=== PATIENT | male | born 2000 | race Caucasian/White ===

== ENCOUNTER 2024-10-28 16:53 | Emergency (ER) | payer OTHER, SELFPAY ==
[2024-10-28] VITALS (8 sets, daily range): BP systolic 125–136; BP diastolic 70–75; PULSE 72–89; RESP 18; TEMP 36.9–37; O2SAT 95–98; BMI 31.2
[2024-10-28 18:14] LABS: Add Manual Diff / Slide Review NO; Basophils Absolute Auto 100 /uL (0-100); Basophils Percent Auto 0.6 % (0-2); Eosinophils Absolute Auto 0 /uL (0-450); Eosinophils Percent Auto 0.4 % (2-4); Hematocrit 44.6 % (41-53); Hemoglobin 15.4 g/dL (13.5-17.5); Lymphocytes Absolute Auto 2200 /uL (1100-4500); Lymphocytes Percent Auto 24.3 % (25-40); Mean Corpuscular HGB Conc 34.5 % (30-36); Mean Corpuscular Hemoglobin 29.1 PG (26-34); Mean Corpuscular Volume 84.3 fL (80-100); Monocytes Absolute Auto 400 /uL (0-900); Monocytes Percent Auto 4.4 % (3-14); Neutrophils Absolute Auto 6500 /uL (1500-7000); Neutrophils Percent Auto 70.3 % (50-75); Platelet Count 347 X10^3/uL (150-400); Red Blood Cell Count 5.29 X10^6/uL (4.5-5.9); Red Cell Distribution Width 13.4 % (11.6-14.8); White Blood Cell Count 9.2 X10^3/uL (4.5-11.0)
[2024-10-28 18:25] LABS: INR 1.1 (0.9-1.3); Prothrombin Time 12.7 SECONDS (9.4-12.5)
[2024-10-28 18:27] LABS: PTT Partial Thromboplastin Tim 35 SECONDS (25.1-36.5)
[2024-10-28 18:28] LABS: Alanine Aminotransferase 59 IU/L (<50); Albumin Globulin Ratio 1.2 (1.0-2.8); Alkaline Phosphatase 53 U/L (38-126); Aspartate Aminotransferase 41 IU/L (17-59); BUN Creatinine Ratio 15.7 (6-22); Bilirubin Total 0.6 mg/dL (0.2-1.3); Blood Urea Nitrogen 19 mg/dL (9-20); Calcium 9.6 mg/dL (8.4-10.2); Carbon Dioxide 26 mmol/L (22-32); Chloride 104 mmol/L (98-107); Estimated Glomerular Filt Rate > 60 mL/min (>60); Globulin 4.1 g/dL (1.7-4.1); Glucose 109 mg/dL (70-100); HEMOLYSIS < 15 (0-50); Potassium 3.8 mmol/L (3.4-5.1); Sodium 140 mmol/L (137-145); Total Protein 9.1 g/dL (6.3-8.2)
--- NOTE | 2024-10-28 20:40 | ED.GIBLEED ---
HPI - GI Bleed General Chief complaint: GI Bleed Stated complaint: blood in stool Time Seen by Provider: 10/28/24 20:39 Source: patient, RN notes reviewed and old records reviewed Mode of arrival: Ambulatory Limitations: no limitations History of Present Illness HPI Narrative: 24-year-old male with no reported medical issues report of bright red blood but sometimes darker with each bowel movement. Patient states he has had several days of blood in his stool he has a bowel movement sometimes it is more blood than stool. He has a large bowl formed stool today which he states had blood mixed in. He states no fevers or chills. He has had some nausea but no vomiting. He reports some lower abdominal pain left greater than right. Patient states he has not had any rectal pain. Has not had pain with bowel movement. He denies any dysuria urgency or frequency. He denies any other bleeding. Patient states he has had this a few times in the past but not persistently like this. He states the pain is also different. Patient states no family of ulcerative colitis or Crohn's. Reported allergy to latex. No daily medications. States he had a prior fracture repair but no other surgeries. No regular tobacco, no regular alcohol or recreational drugs. Related Data Allergies Allergy/AdvReac Type Severity Reaction Status Date / Time latex Allergy Rash Verified 10/28/24 16:56 Review of Systems Review of Systems ROS Unobtainable: All systems reviewed & are unremarkable except as noted in HPI and below Patient History Social History Smoking Status: Never smoker Smoking Status: Never smoker Exam Narrative Exam Narrative: GENERAL: Alert and oriented x three, male in mild distress HEENT: Head normocephalic, atraumatic, EOMI, pupils reactive, face symmetric, moist mucous membranes NECK: Supple, full range of motion CARDIOVASCULAR: Regular rate and rhythm without murmurs, rubs or gallops. RESPIRATORY: Breath sounds equal bilaterally, no wheezes rales or rhonchi. ABDOMEN: Soft, mild left lower quadrant tenderness. Normoactive bowel sounds all 4 quadrants. No guarding or rebound, rigidity, no mass, digital rectal exam nontender no obvious hemorrhoids appreciated. Instrument Adjuster RN Penny : No CVA tenderness EXTREMITIES: Normal range of motion, no clubbing or edema. Neurovascularly intact NEUROLOGICAL: Cranial nerves II through XII grossly intact. Moving all extremities SKIN: Warm, dry, no petechiae, no rashes or lesions. Initial Vital Signs Initial Vital Signs: Vital Signs Temperature 98.6 F 10/28/24 16:56 Pulse Rate 89 10/28/24 16:56 Respiratory Rate 18 10/28/24 16:56 Blood Pressure 125/72 10/28/24 16:56 Pulse Oximetry 96 10/28/24 16:56 Oxygen Delivery Method Room Air 10/28/24 16:56 Course Orders Ordered: ED Orders 10/28/24 21:01 CT abdomen pelvis w con Stat Discontinued Medications Ondansetron HCl (Ondansetron 4 Mg/2 Ml Inj) 4 mg IV NOW PRN PRN Reason: Nausea And Vomiting Ondansetron HCl (Ondansetron 4 Mg Odt) 4 mg SL NOW PRN PRN Reason: Nausea And Vomiting Vital Signs Vital signs: Vital Signs - 8 hr 10/28/24 20:00 10/28/24 20:00 10/28/24 20:30 Temperature Pulse Rate 75 Blood Pressure 125/73 129/70 Pulse Oximetry 95 10/28/24 20:30 10/28/24 21:02 10/28/24 21:30 Temperature Pulse Rate 72 85 78 Blood Pressure Pulse Oximetry 97 98 97 10/28/24 21:41 10/28/24 21:41 Temperature 98.4 F Pulse Rate 88 Blood Pressure 126/72 Pulse Oximetry 97 MDM - GI Bleed Lab Data 10/28/24 18:05 10/28/24 18:05 Labs: Lab Results 10/28/24 Range/Units 18:05 WBC 9.2 (4.5-11.0) X10^3/uL RBC 5.29 (4.5-5.9) X10^6/uL Hgb 15.4 (13.5-17.5) g/dL Hct 44.6 (41-53) % MCV 84.3 (80-100) fL MCH 29.1 (26-34) PG MCHC 34.5 (30-36) % RDW 13.4 (11.6-14.8) % Plt Count 347 (150-400) X10^3/uL Neut % (Auto) 70.3 (50-75) % Lymph % (Auto) 24.3 L (25-40) % [place] % (Auto) 4.4 (3-14) % Eos % (Auto) 0.4 L (2-4) % Baso % (Auto) 0.6 (0-2) % Neut # (Auto) 6500 (4684-7678) /uL Lymph # (Auto) 2200 (3847-9425) /uL [place] # (Auto) 400 (0-900) /uL Eos # (Auto) 0 (0-450) /uL Baso # (Auto) 100 (0-100) /uL PT 12.7 H (9.4-12.5) SECONDS INR 1.1 (0.9-1.3) APTT 35 (25.1-36.5) SECONDS Sodium 140 (137-145) mmol/L Potassium 3.8 (3.4-5.1) mmol/L Chloride 104 (98-107) mmol/L Carbon Dioxide 26 (22-32) mmol/L BUN 19 (9-20) mg/dL Creatinine 1.21 (0.66-1.25) mg/dL Estimated GFR > 60 (>60) mL/min BUN/Creatinine Ratio 15.7 (6-22) Glucose 109 H (70-100) mg/dL Calcium 9.6 (8.4-10.2) mg/dL Total Bilirubin 0.6 (0.2-1.3) mg/dL AST 41 (17-59) IU/L ALT 59 H (<50) IU/L Alkaline Phosphatase 53 (38-126) U/L Total Protein 9.1 H (6.3-8.2) g/dL Albumin 5.0 (3.5-5.0) g/dL Globulin 4.1 (1.7-4.1) g/dL Albumin/Globulin Ratio 1.2 (1.0-2.8) Blood Type A Positive Antibody Screen Negative MDM Narrative Medical decision making narrative: Show white count of 9.2 hemoglobin of 15 platelets of 347. INR is 1.1 electrolytes are appropriate BUN normal at 19 glucose is 109 ALT is 59 but normal AST of [address] abdomen pelvis mild hepatic steatosis otherwise normal CT abdomen pelvis. 24-year-old male reports blood in his stool patient was also had some left lower quadrant and a little bit of right lower quadrant pain in his mildly tender in the left. We will obtain CT abdomen pelvis to evaluate for any colitis or other changes. Patient has been hemodynamically stable. Patient was negative CT abdomen pelvis we will have him follow up for scope with General surgery or Gastroenterology. Did review that he had some hepatic steatosis. Discussed return precautions. Discharge Plan Departure Patient Disposition: Home Clinical Impression: Rectal bleeding Instructions: DI for Rectal Bleeding Activity Restrictions/Additional Instructions: Follow up with General surgery or GI for colonoscopy for your rectal bleeding. Please call to set up follow up with the contact included below. Himself regular stools you can take a stool softener such as Colace once or twice daily if you are constipated. Please return if you develop fevers, rapidly worsening pain, lightheadedness or passing out, increasing bleeding or other new or concerning changes. Referrals: Marck Shoemaker MD [Physician] - Stand Alone Forms: Patient Portal/API/Survey
--- NOTE | 2024-10-28 21:01 | DI.CT.S_ITS ---
PROCEDURE: CT ABDOMEN PELVIS W CON INDICATIONS: rectal bleeding, LLQ>RLQ pain TECHNIQUE: After the administration of intravenous contrast, axial sections acquired from the lung bases to the pubic symphysis. Coronal and sagittal reformats were performed. For radiation dose reduction, the following was used: automated exposure control, adjustment of mA and/or kV according to patient size. COMPARISON: None. FINDINGS: Image quality: Diagnostic. Lower Chest: No significant findings. ABDOMEN: Liver: Mild hepatic steatosis. No solid mass. Gallbladder: Partially decompressed. No visible calcification or wall thickening. Biliary ducts: No biliary dilation. Pancreas: Normal size and morphology without visible ductal dilatation or inflammation. Spleen: Size is within normal limits. Adrenal Glands: No adrenal nodules. Kidneys and Ureters: No hydronephrosis. No solid mass. No complex renal cystic lesion which requires follow up. Stomach and Bowel: Stomach and small bowel loops are normal caliber. Normal appendix. Normal quantity of colonic stool. No suspicious colon wall thickening or inflammation. No explanation for rectal bleeding seen. Peritoneum: No abnormal intraperitoneal fluid. No free air. Ventral Wall: Tiny fat containing umbilical hernia. Abdominal Nodes: No retroperitoneal or mesenteric adenopathy by size criteria. Vessels: The abdominal aorta, IVC, and portal vein are of normal caliber. PELVIS: Pelvic Organs: Unremarkable. Bladder: No stones or wall thickening. Pelvic Nodes: No enlarged lymph nodes. Miscellaneous: No inguinal hernias are seen. Bones: No aggressive osseous abnormality. IMPRESSION: Mild hepatic steatosis. Otherwise normal CT abdomen pelvis. Dictated by: Maegan Ley M.D. on 10/28/2024 at 21:40 Approved by: Maegan Ley M.D. on 10/28/2024 at 21:42
== END 2024-10-28 22:14 | disposition home or self-care (01) ==
PROVIDERS: Emergency Medicine; Emergency Provider Emergency Medicine
DX: K62.5 Hemorrhage of anus and rectum (principal); R10.32 Left lower quadrant pain
CPT/HCPCS: 74177; 80053; 85025; 85610; 85730; 86850; 86900; 86901; 99281; 99284; Q9967

== ENCOUNTER 2024-11-09 06:27 | Day surgery (SDC) | payer OTHER, SELFPAY ==
[2024-11-09] VITALS (7 sets, daily range): BP systolic 99–132; BP diastolic 56–76; PULSE 70–91; RESP 15–70; TEMP 36.4–36.6; O2SAT 94–96
--- NOTE | 2024-11-09 | PATH_ITS ---
[facility] Accession Number: [id number] No. of containers..01 Tissue . 01 Material submitted: . ileum - TERMINAL ILEUM . 01 Diagnosis: TERMINAL ILEUM : Ileal mucosa with no diagnostic alterations. No active inflammation, granulomas, or dysplasia identified. STO 11/11/2024 1602 Local . 01 Electronically signed: . Gage Morales MD, Pathologist NPI- [id number] . 01 Gross description: . TERMINAL ILEUM : Received in formalin are 2 fragment(s) of zurita, soft tissue measuring 0.2 x 0.2 x 0.2 cm to 0.4 x 0.4 x 0.2 cm submitted entirely in 1 cassette(s) /PAULO 11/11/20242 Local . 01 Pathologist provided ICD-10: R19.5 . 01 CPT . 669688 Specimen Comment: A courtesy copy of this report has been sent to [facility] Performed at: [address] [address], [place], [place] [id number] MD Gage Morales MD Phone: [phone]
[2024-11-09] MEDS: LACTATED RINGERS 1,000 ML 42 ML IV (07:22)
--- NOTE | 2024-11-09 07:39 | PM.PREOP ---
Pre-operative Note Interval Note History & Physical reviewed/Exam performed by Physician: Yes Changes to H&P: No
--- NOTE | 2024-11-09 08:03 | PM.OP.COLON ---
Operative Date/Time/Diagnoses Date of procedure: 11/09/24 Time of procedure: 08:03 Pre-op diagnosis: 1. Blood and mucus per rectum 2. Prolapsed internal Post-op diagnosis: same Procedure & Clinicians Study performed: 1. Colonoscopy with biopsy terminal ileum 2. Anoscopy with rubber-band ligation of internal hemorrhoid left anterior quadrant Same procedure as scheduled: Yes Indications: Blood mucus and stool, prolapsed internal hemorrhoids Surgeon: Wesley Boyd Procedure Notes SCOAP/Timeout: Performed Procedure in detail: Time-out was performed. Mac was induced. Patient was placed in left lateral decubitus position. The perineum was inspected without any gross abnormality. Lubricated pediatric colonoscope was inserted and advanced to the cecum. The terminal ileum was intubated. The ileal mucosa was friable, biopsies were obtained. The colonoscope was withdrawn slowly inspecting the circumference of the colon. Very small polyps may have been missed, prep quality was adequate. Retroflexed view of the rectum showed 1 medium size prolapsed nonbleeding internal hemorrhoids. Colonoscope was removed and anoscope was inserted. Suction band ligated after was applied to the left anterior quadrant hemorrhoid and 2 bands were applied. The scope was withdrawn the patient was taken to PACU in good condition. Scope withdrawal time: 9 Findings: internal hemorrhoids Specimen(s): other (Terminal ileum bx) Complications: none Impression: Internal hemorrhoids, ileitis Post-procedure Recommendations: Other recommendation(s) (Pending pathology, may resume normal screening at age 46) Follow up: as needed Disposition: PACU
== END 2024-11-09 08:53 | disposition home or self-care (01) ==
PROVIDERS: Referring Provider Surgery; Visit Provider Surgery
PROC: 0DJD8ZZ Inspection of Lower Intestinal Tract, Via Natural or Artificial Opening Endoscopic (ICD-10-PCS; CPT 45378; principal; 2024-11-09 07:45)
DX: K62.5 Hemorrhage of anus and rectum (principal); K64.8 Other hemorrhoids
CPT/HCPCS: 45380; 46221; J2405; J2704

== ENCOUNTER → 2025-05-12 12:08 | Outpatient (CLI) | payer OTHER, SELFPAY ==
[2025-05-12 12:37] LABS: Add Manual Diff / Slide Review NO; Hematocrit 41.3 % (41-53); Hemoglobin 14.1 g/dL (13.5-17.5); Lymphocytes Absolute Auto 2300 /uL (1100-4500); Mean Corpuscular HGB Conc 34.1 % (30-36); Mean Corpuscular Hemoglobin 28.6 PG (26-34); Mean Corpuscular Volume 83.8 fL (80-100); Platelet Count 323 X10^3/uL (150-400)
[2025-05-12 13:03] LABS: Alanine Aminotransferase 50 IU/L (<50); Albumin 4.6 g/dL (3.5-5.0); Albumin Globulin Ratio 1.3 (1.0-2.8); Alkaline Phosphatase 60 U/L (38-126); Blood Urea Nitrogen 16 mg/dL (9-20); Calcium 9.6 mg/dL (8.4-10.2); Carbon Dioxide 27 mmol/L (22-32); Chloride 103 mmol/L (98-107); Cholesterol 168 mg/dL (140-199); Estimated Glomerular Filt Rate > 60 mL/min (>60); Globulin 3.5 g/dL (1.7-4.1); Glucose 95 mg/dL (70-99); HDL Cholesterol 57 mg/dL (40-60); HEMOLYSIS < 15 (0-50); Potassium 4.6 mmol/L (3.4-5.1); Sodium 139 mmol/L (137-145); Total Protein 8.1 g/dL (6.3-8.2); Triglycerides 119 mg/dL (35-150)
[2025-05-12 13:37] LABS: Ferritin 40 ng/mL (18-464)
== END ==
PROVIDERS: PCP Family Medicine; Referring Provider Family Medicine; Visit Provider Family Medicine
DX: Z86.11 Personal history of tuberculosis (principal); K64.8 Other hemorrhoids; K92.1 Melena; E78.5 Hyperlipidemia, unspecified; R42 Dizziness and giddiness
CPT/HCPCS: 36415; 80053; 80061; 82728; 85025

== ENCOUNTER → 2025-05-12 14:25 | Outpatient (CLI) | payer OTHER, SELFPAY ==
[2025-05-12 15:54] LABS: Ur Creatinine Normal (Normal); Ur Specific Gravity Normal (Normal); Urine MDMA Negative (Negative); Urine Methamphetamines Negative (Negative); Urine THC Negative (Negative); Urine Tricyclic Antidepressant Negative (Negative); Urine pH Normal (Normal)
== END ==
PROVIDERS: PCP Family Medicine; Referring Provider Family Medicine; Visit Provider Family Medicine
DX: Z86.59 Personal history of other mental and behavioral disorders (principal); Z86.11 Personal history of tuberculosis; K64.8 Other hemorrhoids; K92.1 Melena; E78.5 Hyperlipidemia, unspecified; R42 Dizziness and giddiness
CPT/HCPCS: 36415; 80053; 80061; 80305; 82728; 85025